=== PATIENT | female | born 1995 | race Caucasian/White ===

== ENCOUNTER 2018-03-10 20:06 | Emergency (ER) | payer OTHER ==
[2018-03-10 22:12] LABS: Urine Specific Gravity >1.030 (1.005-1.030)
[2018-03-10 22:13] LABS: Urine Blood NEGATIVE (NEG); Urine Glucose NEGATIVE (NEG); Urine Protein 1+ (NEG); Urine Specific Gravity >1.030 (1.005-1.030); Urine pH 5.5 (5.0-7.0)
[2018-03-10 22:21] LABS: Calcium Oxalate Crystals- Ur FEW (NONE SEEN); Urine Bacteria 20-50 /HPF (<20); Urine Culture Reflex Order REFLEXED; Urine RBC <5 /HPF (NONE SEEN)
--- NOTE | 2018-03-10 22:55 | EDPHYS ---
Physician Documentation [facility] Name: Annamarie Spicer Age: 23 yrs Sex: Female : 1995 Arrival Date: 03/10/2018 Time: 20:13 Bed 18 Private MD: ED Physician Arvind Sanz HPI: 03/10 21:54 This 23 yrs old Female presents to ER via Ambulatory with complaints of snw Abdominal Pain, 12 WEEKS PREG. 21:54 The patient presents with abdominal pain right lower quadrant. Onset: The snw symptoms/episode began/occurred suddenly, today. The symptoms do not radiate. Associated signs and symptoms: none. Pertinent negatives: fever, nausea, vaginal discharge, vomiting. The symptoms are described as stabbing. Modifying factors: The symptoms are alleviated by pain resolved on it's own. Severity of pain: At its worst the pain was severe in the emergency department the pain has resolved. The patient has not experienced similar symptoms in the past. [facility] ob on 03/06, + labs and US. Twin gestation without apparent complication. LMP 11/30, EDC 09/02. 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 - Social history:: Smoking status: Patient/guardian denies using tobacco. - Ebola Screening: : Patient denies travel to an Ebola-affected area in the 21 days before illness onset. ROS: 21:54 Constitutional: Negative for fever, chills, and weight loss, Eyes: Negative for injury, snw pain, redness, and discharge, ENT: Negative for injury, pain, and discharge, Neck: Negative for injury, pain, and swelling, Cardiovascular: Negative for chest pain, palpitations, and edema, Respiratory: Negative for shortness of breath, cough, wheezing, and pleuritic chest pain, Back: Negative for injury and pain, : Negative for injury, bleeding, discharge, and swelling, MS/Extremity: Negative for injury and deformity, Skin: Negative for injury, rash, and discoloration, Neuro: Negative for headache, weakness, numbness, tingling, and seizure. 21:54 Abdomen/GI: Positive for abdominal pain, of the right lower quadrant, denies vaginal bleeding. Exam: 21:53 Constitutional: This is a well developed, well nourished patient who is awake, alert, snw and in no acute distress. Head/Face: Normocephalic, atraumatic. Eyes: Pupils equal round and reactive to light, extra-ocular motions intact. Lids and lashes normal. Conjunctiva and sclera are non-icteric and not injected. Cornea within normal limits. Periorbital areas with no swelling, redness, or edema. ENT: Nares patent. No nasal discharge, no septal abnormalities noted. Tympanic membranes are normal and external auditory canals are clear. Oropharynx with no redness, swelling, or masses, exudates, or evidence of obstruction, uvula midline. Mucous membranes moist. Neck: Trachea midline, no thyromegaly or masses palpated, and no cervical lymphadenopathy. Supple, full range of motion without nuchal rigidity, or vertebral point tenderness. No Meningismus. Chest/axilla: Normal chest wall appearance and motion. Nontender with no deformity. No lesions are appreciated. Cardiovascular: Regular rate and rhythm with a normal S1 and S2. No gallops, murmurs, or rubs. Normal PMI, no JVD. No pulse deficits. Respiratory: Lungs have equal breath sounds bilaterally, clear to auscultation and percussion. No rales, rhonchi or wheezes noted. No increased work of breathing, no retractions or nasal flaring. Back: No spinal tenderness. No costovertebral tenderness. Full range of motion. Skin: Warm, dry with normal turgor. Normal color with no rashes, no lesions, and no evidence of cellulitis. MS/ Extremity: Pulses equal, no cyanosis. Neurovascular intact. Full, normal range of motion. Neuro: Awake and alert, GCS 15, oriented to person, place, time, and situation. Cranial nerves II-XII grossly intact. Motor strength 5/5 in all extremities. Sensory grossly intact. Cerebellar exam normal. Normal gait. Psych: Awake, alert, with orientation to person, place and time. Behavior, mood, and affect are within normal limits. 21:53 Abdomen/GI: Inspection: abdomen appears normal, Bowel sounds: normal, Palpation: mild abdominal tenderness, in the right lower quadrant, gravid. Vital Signs: 20:37 BP 116 / 80; Pulse 94; Resp 16; Temp 98.2(TE); Pulse Ox 100% on R/A; Weight 43.09 kg aj1 (R); Height 4 ft. 11 in. (149.86 cm) (R); Pain 0/10; 22:00 BP 115 / 86; Pulse 82; Resp 16; Pulse Ox 99% on R/A; lp1 23:02 BP 113 / 59; Pulse 80; Resp 16; Pulse Ox 100% on R/A; lp1 20:37 Body Mass Index 19.19 (43.09 kg, 149.86 cm) aj1 MDM: 22:06 Patient medically screened. snw 22:52 Data reviewed: vital signs, nurses notes. Data interpreted: Pulse oximetry: on room air snw is 100 %. Interpretation: normal. Counseling: I had a detailed discussion with the patient and/or guardian regarding: the historical points, exam findings, and any diagnostic results supporting the discharge/admit diagnosis, the presence of at least one elevated blood pressure reading (>120/80) during this emergency department visit, radiology results, the need for outpatient follow up, to return to the emergency department if symptoms worsen or persist or if there are any questions or concerns that arise at home. Refusal of service: The patient/guardian displays adequate decision making capability and despite a detailed discussion of alternatives, benefits, risks, and consequences refuses: all lab tests. Special discussion: Based on the patient's Hx, exam, and Dx evaluation, there is no indication for emergent surgery or inpatient Tx. It is understood by the patient/guardian that if the Sx's persist or worsen they need to return immediately for re-evaluation. I have referred the patient to see his PCP for further evaluation of high blood pressure. Based on the history and exam findings, there is no indication for further emergent testing or inpatient evaluation. I discussed with the patient/guardian the need to see the OB Gyne specialist for further evaluation of the symptoms. 03/10 21:18 Order name: Urine Culture snw 03/10 21:18 Order name: Urine Microscopic Only; Complete Time: 22:56 snw 03/10 21:18 Order name: Urine Test (obtain specimen); Complete Time: 21:58 snw 03/10 21:18 Order name: Urine Dipstick-Ancillary (obtain specimen); Complete Time: 21:58 snw 03/10 21:49 Order name: Urine Dipstick--Ancillary (enter results); Complete Time: 22:56 oe 03/10 21:50 Order name: Urine --Ancillary (enter results); Complete Time: 22:56 oe 03/10 22:35 Order name: OB Limited EDMS 03/10 21:32 Order name: NPO; Complete Time: 21:58 snw Administered Medications: No medications were administered Disposition: 03/11 03:05 Co-signature as Attending Physician, Arvind Sanz MD. pkes Disposition: 03/10/18 22:54 Discharged to Home. Impression: Twin , Other abdominal pain - resolved. - Condition is Stable. - Discharge Instructions: Abdominal Pain During , Immunizations and , Second Trimester of , [id number]. - Prescriptions for Vitamin 27- 0.8 mg Oral Tablet - take 1 tablet by ORAL route once daily; 60 tablet. - Medication Reconciliation Form, Thank You Letter, Antibiotic Education, Prescription Opioid Use form. - Follow up: Private Physician; When: 2 - 3 days; Reason: Recheck today's complaints, Continuance of care, Re-evaluation by your physician. Follow up: Emergency Department; When: As needed; Reason: Worsening of condition. Signatures: Dispatcher [employer] Rani Beaver, RN RN aj1 Arvind Sanz MD MD pkl Silvana Stearns, STAFF EDITOR-C STAFF EDITOR-Csnw Nahomi Garsia, RN RN lp1 Corrections: (The following items were deleted from the chart) 03/10 22:35 21:33 Transvaginal Ob+US.RAD.BRZ ordered. [facility] EDWV 23:04 21:32 IV Saline Lock ordered. [facility] lp1 23:04 21:32 Labs collected and sent ordered. community health lp1 23:05 22:54 03/10/2018 22:54 Discharged to Home. Impression: Twin ; Other abdominal lp1 pain - resolved. Condition is Stable. Forms are Medication Reconciliation Form, Thank You Letter, Antibiotic Education, Prescription Opioid Use. Follow up: Private Physician; When: 2 - 3 days; Reason: Recheck today's complaints, Continuance of care, Re-evaluation by your physician. Follow up: Emergency Department; When: As needed; Reason: Worsening of condition. snw
--- NOTE | 2018-03-10 22:55 | ER ---
Nurse's Notes [facility] Name: Annamarie Spicer Age: 23 yrs Sex: Female : 1995 Arrival Date: 03/10/2018 Time: 20:13 Bed 18 Private MD: Diagnosis: Twin ;Other abdominal pain-resolved Presentation: 03/10 20:35 Presenting complaint: Patient states: "Earlier I was feeling some really horrible pains aj1 in my right side. I'm with twins so it was coming from one of them, but I was just coming over here to make sure it wasn't something serious" Reports abdominal pain that lasted for approximately one hour. Denies vaginal bleeding, vaginal discharge. Transition of care: patient was not received from another setting of care. Onset of symptoms was March 10, 2018. Risk Assessment: Do you want to hurt yourself or someone else? Patient reports no desire to harm self or others. Initial Sepsis Screen: Does the patient meet any 2 criteria? No. Patient's initial sepsis screen is negative. Does the patient have a suspected source of infection? No. Patient's initial sepsis screen is negative. Care prior to arrival: None. 20:35 Method Of Arrival: Ambulatory aj1 20:35 Acuity: DESTINY 3 aj1 Triage Assessment: 20:37 General: Appears in no apparent distress. comfortable, Behavior is calm, cooperative, aj1 appropriate for age. Pain: Denies pain. Neuro: Level of Consciousness is awake, alert, confused. Cardiovascular: Patient's skin is warm and dry. Respiratory: Airway is patent Respiratory effort is even, unlabored, Respiratory pattern is regular, symmetrical. GI: Abdomen is flat, non-distended, Reports abdominal pain that has now resolved. : No signs and/or symptoms were reported regarding the genitourinary system. : Denies discharge, vaginal bleeding. Derm: Skin is pink, warm \\T\\ dry. normal. Musculoskeletal: Circulation, motion, and sensation intact. 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 - Social history:: Smoking status: Patient/guardian denies using tobacco. - Ebola Screening: : Patient denies travel to an Ebola-affected area in the 21 days before illness onset. Screenin:57 Abuse screen: Denies threats or abuse. Denies injuries from another. Nutritional lp1 screening: No deficits noted. Tuberculosis screening: No symptoms or risk factors identified. Fall Risk None identified. Assessment: 21:53 General: Appears in no apparent distress. comfortable, Behavior is calm, cooperative, lp1 appropriate for age. Pain: Denies pain. Neuro: Level of Consciousness is awake, alert, obeys commands. Cardiovascular: Patient's skin is warm and dry. Respiratory: Respiratory effort is even, unlabored, Breath sounds are clear bilaterally. GI: Abdomen is non-distended. 21:55 GI: Bowel sounds present X 4 quads. Abd is soft and non tender X 4 quads. : No signs lp1 and/or symptoms were reported regarding the genitourinary system. EENT: No signs and/or symptoms were reported regarding the EENT system. Derm: Skin is pink, warm \\T\\ dry. Musculoskeletal: Circulation, motion, and sensation intact. 21:56 Reassessment: Patient states pain resolved at this time; Declining lab draw, provider lp1 aware. 23:02 Reassessment: Patient is alert, oriented x 3, equal unlabored respirations, skin lp1 warm/dry/pink. Patient denies pain at this time. Vital Signs: 20:37 BP 116 / 80; Pulse 94; Resp 16; Temp 98.2(TE); Pulse Ox 100% on R/A; Weight 43.09 kg aj1 (R); Height 4 ft. 11 in. (149.86 cm) (R); Pain 0/10; 22:00 BP 115 / 86; Pulse 82; Resp 16; Pulse Ox 99% on R/A; lp1 23:02 BP 113 / 59; Pulse 80; Resp 16; Pulse Ox 100% on R/A; lp1 20:37 Body Mass Index 19.19 (43.09 kg, 149.86 cm) aj1 ED Course: 20:13 Patient arrived in ED. es 20:37 Triage completed. aj1 20:37 Arm band placed on Patient placed in waiting room, Patient notified of wait time. aj1 21:45 Garsia, Nahomi, RN is Primary Nurse. lp1 21:57 Patient has correct armband on for positive identification. Placed in gown. Bed in low lp1 position. Call light in reach. Pulse ox on. NIBP on. 21:57 Patient did not have IV access during this emergency room visit. lp1 22:06 Brennon Weaver PA is PHCP. snw 22:06 Arvind Sanz MD is Attending Physician. snw 22:21 Ultrasound completed. Patient tolerated well. aa4 22:42 OB Limited In Process Unspecified. EDMS 23:02 No provider procedures requiring assistance completed. lp1 Administered Medications: No medications were administered Outcome: 22:54 Discharge ordered by . snw 23:02 Discharged to home ambulatory, with significant other. lp1 23:02 Condition: good 23:02 Discharge instructions given to patient, Instructed on discharge instructions, follow up and referral plans. medication usage, Demonstrated understanding of instructions, follow-up care, medications, Prescriptions given X 1. 23:05 Patient left the ED. lp1 Signatures: Dispatcher [employer] Rani Beaver, RN RN aj1 Silvana Stearns, DURABILITY TECHNICIAN-C DURABILITY TECHNICIAN-Csnw Yamel Dan Amanda aa4 Nahomi Garsia, RN RN lp1
--- NOTE | 2018-03-11 01:25 | RAD REPORT ---
EXAM DESCRIPTION: US - OB Limited - 03/10/2018 10:42 pm CLINICAL HISTORY: ABD CRAMPING, COMPARISON: No comparisons FINDINGS: A limited obstetrical sonogram of this requested. Twin gestations are present in variable positions. Two distinct placental masses are suspected, which would be compatible with dichorionic, diamniotic t winning. Subjective amniotic fluid volume is normal in both sacs. No placenta previa. No evidence of placental abruption. Twin A heart rate was noted to be between 145-154 BPM, normal. Twin B heart rate was noted to be betw een 154-160 BPM, normal. The maternal adnexa show no worrisome findings. IMPRESSION: Limited obstetrical sonogram as detailed above demonstrating live twin gestations. A followup complete obstetrical ultrasound in the mid second trimester would be suggested for followu pJordan
== END 2018-03-10 23:05 | disposition home or self-care (01) ==
LOC: ER 20:06
DX: R10.31 Right lower quadrant pain (principal); O30.001 Twin pregnancy, unspecified number of placenta and unspecified number of amniotic sacs, first trimester; Z3A.12 12 weeks gestation of pregnancy
CPT/HCPCS: 76815; 81003; 81015; 81025; 87086; 87088; 99283